=== PATIENT | female | born 1965 | race Caucasian/White ===

== ENCOUNTER → 2017-12-18 | Outpatient (CLI) | payer OTHER ==
[~2017-12-18] MED LIST: ESCI20TA38 PO; LEVO112T43 PO
--- NOTE | 2017-12-18 10:25 | RADIOLOGY IMAGING REPORT ---
FACILITY: [facility] - [place] PATIENT NAME: Bry Stark : 1965 MR: [id number] V: [id number] EXAM DATE: ORDERING PHYSICIAN: ARA MENDEZ TECHNOLOGIST: Location: [facility] [place] Patient: Bry Stark : 1965 Visit/Account:[id number] Date of Sevice: 12/18/2017 Single view of the orbits INDICATION: Pre-MRI. Evaluate for radiopaque foreign body. FINDINGS: Single Cai' view was obtained of the skull. No evidence of radiopaque foreign body over lying the bilateral orbits. The visualized paranasal sinuses appear patent. No acute osseous abnorm ality identified. IMPRESSION: No evidence of radiopaque foreign body overlying the orbits. Report Dictated By: Zane Souza MD at 12/18/2017 10:21 AM Report E-Signed By: Zane Souza MD at 12/18/2017 10:22 AM WSN:[id number]
--- NOTE | 2017-12-18 13:35 | RADIOLOGY IMAGING REPORT ---
FACILITY: [facility] PATIENT NAME: Bry Stark : 1965 MR: [id number] V: [id number] EXAM DATE: ORDERING PHYSICIAN: ARA MENDEZ TECHNOLOGIST: Location: [facility] Patient: Bry Stark : 1965 Visit/Account:[id number] Date of Sevice: 12/18/2017 EXAMINATION: MRI Cervical spine without intravenous contrast HISTORY: Neck pain. COMPARISON: Cervical spine radiographs from same date. TECHNIQUE: Multi-planar, multi-sequence cervical spine MRI was performed without intravenous contras t administration. FINDINGS: Alignment: Normal. Vertebral marrow signal: Negative. Cranio-cervical junction: Negative. Visualized posterior fossa: Negative. Soft tissues: Negative. Cervical cord: Negative. Disc Spaces: C1-2: Negative. C2-3: Negative. C3-4: Moderate to severe disc height loss, with circumferential disc osteophyte complex and left face t hypertrophy. Mild to moderate spinal canal stenosis. Mild to moderate right and moderate to severe left neural foraminal stenosis. C4-5: Solid interbody fusion. No significant stenosis. C5-6: Solid interbody fusion. No significant stenosis. C6-7: Moderate to severe disc height loss with circumferential disc osteophyte complex and mild ligam entum flavum thickening. Mild to moderate spinal canal stenosis. Mild bilateral neural foraminal sten osis. C7-T1: Mild disc at loss with small central disc protrusion and mild ligamentum flavum thickening. No significant stenosis. Upper thoracic spine: Mild degenerative changes without stenosis. IMPRESSION: Solid interbody fusion of C4-C5 and C5-C6 with adjacent segment disease at C3-C4 and C6-C 7. Report Dictated By: Andrea Johnson MD at 12/18/2017 1:26 PM Report E-Signed By: Andrea Johnson MD at 12/18/2017 1:31 PM WSN:[email or web address]
--- NOTE | 2017-12-18 13:42 | RADIOLOGY IMAGING REPORT ---
FACILITY: [facility] PATIENT NAME: Bry Stark : 1965 MR: [id number] V: [id number] EXAM DATE: ORDERING PHYSICIAN: ARA MENDEZ TECHNOLOGIST: Location: [facility] Patient: Bry Stark : 1965 Visit/Account:[id number] Date of Sevice: 12/18/2017 CERVICAL SPINE 2 OR 3 VIEW HISTORY: Previous fusion Additional history: None COMPARISON: None available at this institution. FINDINGS: Three lateral views performed including flexion-extension. Patient has had a remote fusion at C4-C5 with complete bony fusion. There also fusion at C5-6 with a nterior plate affixed to C5 and C6 and a disc prosthesis with associated bony fusion. The cervical spine is aligned in the neutral position and unchanged with flexion. With extension the re is minimal 2-3 mm retrolisthesis C3 over C4. There is mild disc space narrowing of the disc space above and below the fused levels (C3-4 and C6-C7 ) with associated mild endplate hypertrophic changes. IMPRESSION: Prior fusions C4-5 and C5-6. Degenerative disc disease C3-4 and C6-7. Very minimal retrolisthesis C3 over C4 with extension. Report Dictated By: Boris Cui MD at 12/18/2017 1:31 PM Report E-Signed By: Boris Cui MD at 12/18/2017 1:38 PM WSN:[email or web address]
--- NOTE | 2017-12-18 13:48 | RADIOLOGY IMAGING REPORT ---
FACILITY: [facility] - [place] [place] PATIENT NAME: Bry Stark : 1965 MR: [id number] V: [id number] EXAM DATE: ORDERING PHYSICIAN: ARA MENDEZ TECHNOLOGIST: Location: [facility] Patient: Bry Stark : 1965 Visit/Account:[id number] Date of Sevice: 12/18/2017 EXAMINATION: MRI Lumbar spine without intravenous contrast HISTORY: Low back pain. COMPARISON: None available. TECHNIQUE: Multi-planar, multi-sequence lumbar spine MRI was performed without intravenous contrast administration. FINDINGS: Alignment: 4 mm of anterior listhesis of L4 over L5. Vertebral marrow signal: Mild discogenic bone marrow edema on the left at L3-L4. Distal thoracic cord: Negative. Conus: negative, terminates at L1 Cauda equina: Negative. Paravertebral soft tissues: Postsurgical changes. Otherwise negative. Visualized abdominal and pelvic structures: Negative. Disc Spaces: Lower thoracic spine: Mild degenerative changes without stenosis. L1-2: Small anterior disc osteophyte complex. Otherwise negative. L2-3: Circumferential disc bulge and facet hypertrophy. No significant spinal canal stenosis. Mild to moderate bilateral neural foraminal stenosis. L3-4: Mild to moderate disc height loss with circumferential disc bulge and facet hypertrophy. No sig nificant spinal canal stenosis. Moderate to severe bilateral neural foraminal stenosis. L4-5: Postop laminectomy. Moderate asymmetric right-sided disc height loss with circumferential disc bulge and right greater than left facet hypertrophy. No significant spinal canal stenosis. Moderate l eft and moderately severe right neural foraminal stenosis. L5-S1: Postop laminectomy. Mild asymmetric left-sided disc height loss and disc bulge. Left greater t davies right facet hypertrophy. No significant spinal canal stenosis. Moderately severe bilateral neural foraminal stenosis. IMPRESSION: Multilevel degenerative disc disease and facet hypertrophy with 4 mm of anterior listhesi s of L4 over L5 and postsurgical changes in the lower lumbar spine. Report Dictated By: Andrea Johnson MD at 12/18/2017 1:37 PM Report E-Signed By: Andrea Johnson MD at 12/18/2017 1:43 PM WSN:[email or web address]
--- NOTE | 2017-12-18 15:03 | RADIOLOGY IMAGING REPORT ---
FACILITY: [facility] PATIENT NAME: Bry Stark : 1965 MR: [id number] V: [id number] EXAM DATE: ORDERING PHYSICIAN: ARA MENDEZ TECHNOLOGIST: Location: [facility] Patient: Bry Stark : 1965 Visit/Account:[id number] Date of Sevice: 12/18/2017 LUMBAR SPINE 2 OR 3 VIEW HISTORY: Low back pain Additional history: None COMPARISON: Comparison MRI same date FINDINGS: Three views including frontal and flexion and extension views. There are no compression fractures. There is grade 1 anterolisthesis L4 over L5 which measures 3 mm with extension and increases to 6 mm with flexion. There is moderate disc space narrowing L3-4, L4-5, and L5-S1. Postoperative laminectomies at the L4 and L5. IMPRESSION: Laminectomies L4 and L5. Grade 1 spondylolisthesis at L4-5 which increases slightly with flexion. Degenerative disc disease L3-4 through L5-S1. See MRI for further discussion. Report Dictated By: Boris uCi MD at 12/18/2017 2:55 PM Report E-Signed By: Boris Cui MD at 12/18/2017 3:00 PM WSN:[email or web address]
== END ==
LOC: MRI 01:30
PROVIDERS: ATTEND Neurological Surgery
DX: M47.894 Other spondylosis, thoracic region (principal); M48.061 Spinal stenosis, lumbar region without neurogenic claudication; Z98.890 Other specified postprocedural states
CPT/HCPCS: 70030; 72040; 72100; 72141; 72148